=== PATIENT | male | born 1970 | race Caucasian/White ===

== ENCOUNTER 2017-03-15 20:56 | Emergency (ER) | payer BC, OTHER ==
[2017-03-15 21:03] VITALS: BP 150/88
[2017-03-15] MEDS ORDERED: KETOROLAC TROMETHAMINE 30 MG/ML VIAL IM ONE (21:17)
[2017-03-15] MEDS ORDERED: PROMETHAZINE HCL 25 MG/ML AMPUL IM ONE (21:17)
--- NOTE | 2017-03-15 21:17 | ERNOTE ---
Headache ER HPI - Narrative Date of Service: 03/15/17 - General Presenting Symptoms: headache Time Seen by Provider: 03/15/17 21:08 Source: patient, family - Immun/Allergies/Home Medications Immunizations: IMMUNIZATION HX Immunizations Up to Date Yes History of Influenza Vaccine No Hx Pneumococcal Vaccination No Allergies/Adverse Reactions: Allergies Penicillins Allergy (Intermediate, Verified 03/15/17 21:00) Hives Home Medications: HOME MEDICATIONS NK [No Home Medication] 03/15/17 [Last Taken Unknown] - History of Present Illness Narrative: His is a 47-year-old male who comes to the emergency department with a diffuse throbbing headache. The patient says that he has a history of migraines, but he has not had one requiring a visit to the hospital and 5 years or more. Earlier today he had a severe headache throbbing with sensitivity to light and sound along with nausea. The headache got better after an hour or so but 3-4 hours prior to arrival in the ER it came back. It is not quite as severe as he has had in the past. He denies any fever or chills he denies any vomiting he denies any numbness or tingling he denies any recent trauma. The patient has no other somatic complaints. Review of Systems - Review of Systems Constitutional: Present: no symptoms reported EYE: Present: other ENT: Present: no symptoms reported Respiratory: Present: no symptoms reported Cardiology: Present: no symptoms reported - sensitivity to light Gastrointestinal/Abdominal: Present: nausea. Absent: vomiting, constipation, abdominal pain Genitourinary: Present: no symptoms reported Musculoskeletal: Present: no symptoms reported Skin: Present: no symptoms reported Neurological: Present: headache. Absent: anxiety, depressed, dizziness/light- headedness, seizure, weakness, numbness, tremors Endocrine: Present: no symptoms reported Hematologic/Lymphatic: Present: no symptoms reported Psych: Present: no symptoms reported - Patient's Past Medical History Patient History - Medical: Migraines Patient History - Cardiac/Respiratory: No pertinent hx Patient History - Cancer: No Hx of Cancer Patient History - Surgical Procedures: No surgical history Patient History - Other: None - Social History Living Situations: home Abuse History: No History of abuse Psych History: No pertinent hx Smoking Status: Current every day smoker Have you smoked in the past 12 months: Yes Do you dip or chew tobacco: No Alcohol Use: occasionally Drug Use: none - Immunizations Immunizations Up to Date: Yes Hx Pneumococcal Vaccination: No History of Influenza Vaccine: No Physical Exam - Physical Exam General Appearance: Present: wd/wn, alert Head Exam: Present: normal inspection, no evidence of injury Eye Exam: Normal inspection: bilateral, PERRL: bilateral, EOMI: bilateral Ears, Nose, Throat: Present: normal ENT inspection, normal pharynx Neck: Present: normal inspection, nontender, other - the patient has some spasms of the paraspinal muscles but I do not palpate any trigger points Respiratory: Present: no respiratory distress, other - patient has scattered wheezes. He is a smoker. Cardiovascular/Chest: Present: regular rate, rhythm, no murmur Gastrointestinal/Abdominal: Present: normal bowel sounds, nontender, soft Back Exam: Present: normal inspection, normal range of motion Extremity Exam: Present: normal inspection, non-tender, no edema Neurological Exam: Present: alert, oriented, normal mood/affect, no motor/ sensory deficits, normal cerebellar test. Absent: facial droop, motor weakness , disoriented to person, disoriented to time, disoriented to place, disoriented to situation Skin Exam: Present: normal color, warm/dry Lymphatic Exam: Present: no adenopathy ED Progress - Vital Signs Patient's Vital Signs:: I have reviewed the patient's vital signs. Vital Signs: Vital Signs 03/15/17 21:00 Temperature 36.3 C L Pulse Rate 84 Respiratory 15 Rate Blood Pressure 150/88 O2 Sat by Pulse 97 Oximetry - Progress/Reassessment Chief Complaint: Headache Progress:: Improved Progress Note-Subjective: 03/15/17 21:48 Patient says that his pain is now a 2 or 3 out of 10. He feels good enough to go home. Plan - Plan Plan: The patient really wants to go with just a couple of shots. He says he had this before and whatever medicine they gave to him made him better within a few minutes. The patient does not want had a CAT scan initially. He says that if the initial doses of medicines are not working for him then he will stay and have an IV placed with IV medicines as well as a CAT scan. I think this is a reasonable approach. Departure Clinical Impression: Migraine - Departure Disposition: Home self-care Condition: Good Instructions: Migraine Headache, [id number] Additional Instructions: As we discussed her symptoms are very suggestive of a migraine headache. I've given any medicine here which should take care of the headache. He will likely be very sleepy this evening but you should wake up tomorrow feeling much better. Call your family doctor and set up a follow-up appointment. They sure he tell him that the Imitrex that you've been prescribed does not help her headaches. If you develop new concerning symptoms return to the ER
[2017-03-15] MEDS ORDERED: KETOROLAC TROMETHAMINE 30 MG/ML VIAL ONE (21:19)
[2017-03-15] MEDS ORDERED: PROMETHAZINE HCL 25 MG/ML AMPUL ONE (21:19)
== END 2017-03-15 21:51 | disposition home or self-care (01) ==
LOC: ER 20:56
DX: G43.909 Migraine, unspecified, not intractable, without status migrainosus (principal); F17.200 Nicotine dependence, unspecified, uncomplicated